=== PATIENT | male | born 1985 | race Caucasian/White ===

== ENCOUNTER 2016-10-02 00:14 | Emergency (ER) | payer SELFPAY ==
[~2016-10-02] VITALS: Ht 182.9 cm; Wt 100.3 kg
[~2016-10-02 00:14] MED LIST: ASPIR-TRIN325 M1 PO; Proventil,Ventolin H IH
[2016-10-02] MEDS ORDERED: CLEOCIN150 MG PO (03:01)
[2016-10-02 03:10] VITALS: BP 139/97
== END 2016-10-02 03:10 | disposition home or self-care (01) ==
LOC: EME 00:14
DX: S41.112A Laceration without foreign body of left upper arm, initial encounter (principal); S51.012A Laceration without foreign body of left elbow, initial encounter; S51.812A Laceration without foreign body of left forearm, initial encounter; S61.512A Laceration without foreign body of left wrist, initial encounter; W25.XXXA Contact with sharp glass, initial encounter; Y92.015 Private garage of single-family (private) house as the place of occurrence of the external cause; Z23 Encounter for immunization
CPT/HCPCS: 73060; 73090; 99281; 99283; S0020

== ENCOUNTER 2017-06-13 16:23 | Emergency (ER) | payer OTHER ==
[~2017-06-13] VITALS: Ht 182.9 cm; Wt 102.2 kg
[~2017-06-13 16:23] MED LIST changes: +CLEOCIN150 MG PO
[2017-06-13] MEDS ORDERED: MOTRIN600 MG PO (17:49)
[2017-06-13 18:04] VITALS: BP 122/78
== END 2017-06-13 18:05 | disposition home or self-care (01) ==
LOC: EXP 16:23 → EME 16:23 → EXP 18:05
DX: S29.011A Strain of muscle and tendon of front wall of thorax, initial encounter (principal); Z87.01 Personal history of pneumonia (recurrent); Z88.1 Allergy status to other antibiotic agents
CPT/HCPCS: 71046; 99281; 99284